=== PATIENT | male | born 1980 | race Caucasian/White ===

== ENCOUNTER 2023-11-26 08:38 | Day surgery (SDC) | payer OTHER ==
[~2023-11-26] VITALS: Ht 182.9 cm; Wt 94.3 kg
[~2023-11-26 08:38] MED LIST: LR 1,000 ML IV SCH; Ondansetron 4 MG/2 ML VIAL IV PRN
[2023-11-26] MEDS ORDERED: VIAGRA100 M1 PO (09:42)
[2023-11-26] MEDS ORDERED: CELEBREX50 MG PO (09:43)
[2023-11-26] MEDS ORDERED: LYRICA 150MG C150 MG PO (09:43)
[2023-11-26] MEDS ORDERED: ROBAXIN 75750 MG/TAB PO (09:44)
[2023-11-26] MEDS ORDERED: QUALITY CHOICE1 T22 PO (09:44)
[2023-11-26 09:45] VITALS: BP 118/87; PULSE 73; TEMP 97.5
[2023-11-26] MEDS ORDERED: FLONASEALLERGY NS (09:45)
[2023-11-26] MEDS ORDERED: PRILOSEC 20MG20 MG PO (09:45)
[2023-11-26] MEDS ORDERED: Lidocaine PF 2% (20 MG/ML) 5 ML VIAL ONE (11:18)
[2023-11-26 11:40] VITALS: BP 112/82; PULSE 74
[2023-11-26 11:45] VITALS: BP 116/79; PULSE 70
[2023-11-26 12:00] VITALS: BP 125/75; PULSE 67
[2023-11-26 14:05] VITALS: BP 110/80; PULSE 74
--- NOTE | 2023-11-26 15:16 | NUR ---
1140- PT BACK FROM ENDO PROCEDURE TO BAY 4 VIA CART. PT AMBULATED FROM CART TO CHAIR WITH ASSISTANCE. MONITORS ON AND ALARMS SET. REPROT RECIEVED BY ADRIENNE PIERRE. VSS. PT ALERT AND ORIENTED. PT REQUESTING FOOD AND DRINK. NO OTHER NEEDS AT THIS TIME. CALL LIGHT WITHIN REACH. 1145- PT TAKING FOOD AND DRINK WELL. NO COMPLICATIONS NOTED. 1210- DISCHARGE PAPERWORK GIVEN TO PT WITH AT BEDSIDE. ALL QUESTIONS ANSWERED. 1220- PT TRANSFERRED OUT OF THE HOSPITAL VIA WHEELCHAIR TAKEN DOWN BY NURSES AID TO PT'S OWN PRIVATE VEHICLE DRIVEN BY .
== END 2023-11-26 12:20 | disposition home or self-care (01) ==
LOC: SDCO 08:38
DX: Z12.11 Encounter for screening for malignant neoplasm of colon (principal)
CPT/HCPCS: J2704; J7120